=== PATIENT | female | born 1970 | race Caucasian/White ===

== ENCOUNTER 2021-02-27 14:07 | Day surgery (SDC) | payer BC, OTHER ==
[2021-02-27] MEDS ORDERED: LIDOCAINE HCL 2% 100 MG/5 ML IJ ONE (14:08)
[2021-02-27] MEDS ORDERED: DIPRIVAN 200 MG/20 ML IV ONE (14:39)
[2021-02-27] MEDS ORDERED: Lactated Ringers 1,000 ML IV ONE (15:48)
--- NOTE | 2021-02-27 16:39 | XRAY ---
Indication: Bilateral L4-S1 MBB. Intraoperative fluoroscopy provided for 11 seconds. Single digital spot image submitted for interpretation demonstrates posterior needle tips projecting over the expected left and right L4-S1 nerve roots. Correlate with intraoperative findings/report.
--- NOTE | 2021-02-27 16:43 | XRAY ---
11 seconds of fluoroscopy was used in surgery for a bilateral L4-S1 MBB.
== END 2021-02-27 15:20 | disposition home or self-care (01) ==
LOC: SDC-PAIN 14:07
PROVIDERS: ATTEND Psychiatry & Neurology Pain Medicine
DX: M47.816 Spondylosis without myelopathy or radiculopathy, lumbar region (principal); Z79.899 Other long term (current) drug therapy
CPT/HCPCS: 64493; 64494; 72020; 77002; 84703; J2704

== ENCOUNTER 2021-03-20 14:43 | Day surgery (SDC) | payer OTHER ==
[2021-03-20] MEDS ORDERED: BUPIVACAINE 0.5% VIAL IJ ONE (14:44)
[2021-03-20] MEDS ORDERED: Depo-Medrol 40 MG/ML IM ONE (14:44)
[2021-03-20] MEDS ORDERED: Lactated Ringers 1,000 ML IV ONE (15:24)
[2021-03-20] MEDS ORDERED: DIPRIVAN 200 MG/20 ML IV ONE (15:53)
--- NOTE | 2021-03-20 20:40 | XRAY ---
Indication: Bilateral L4-S1 MBB. Intraoperative fluoroscopy provided for 10 seconds. Single digital spot image submitted for interpretation demonstrates posterior needle tips projecting over the expected left and right L4-S1 nerve roots. Correlate with intraoperative findings/report.
--- NOTE | 2021-03-21 08:52 | XRAY ---
10 seconds fluoroscopy time in surgery for bilateral L4-S1 MBB.
== END 2021-03-20 16:20 | disposition home or self-care (01) ==
LOC: SDC-PAIN 14:43
PROVIDERS: ATTEND Psychiatry & Neurology Pain Medicine
DX: M47.816 Spondylosis without myelopathy or radiculopathy, lumbar region (principal); Z79.899 Other long term (current) drug therapy
CPT/HCPCS: 64493; 64494; 72020; 77002; 84703; J1030; J2704

== ENCOUNTER 2021-04-24 12:43 | Day surgery (SDC) | payer OTHER ==
[2021-04-24] MEDS ORDERED: Depo-Medrol 40 MG/ML IM ONE (12:44)
[2021-04-24] MEDS ORDERED: Xylocaine 1% Vial 30 ML PF IJ ONE (12:44)
[2021-04-24] MEDS ORDERED: BUPIVACAINE 0.5% VIAL IJ ONE (12:44)
[2021-04-24] MEDS ORDERED: DIPRIVAN 200 MG/20 ML IV ONE (15:10)
[2021-04-24] MEDS ORDERED: Lactated Ringers 1,000 ML IV ONE (15:47)
--- NOTE | 2021-04-24 16:54 | XRAY ---
19 seconds fluoroscopy time in surgery for left L4-S1 RFA.
--- NOTE | 2021-04-24 21:52 | XRAY ---
Indication: Left L4-S1 RFA. Intraoperative fluoroscopy provided for 19 seconds. 3 digital spot image submitted for interpretation demonstrates posterior needle tips projecting over the expected left L4-S1 nerve roots. Correlate with intraoperative findings/report.
== END 2021-04-24 15:36 | disposition home or self-care (01) ==
LOC: SDC-PAIN 12:43
PROVIDERS: ATTEND Psychiatry & Neurology Pain Medicine
DX: M47.816 Spondylosis without myelopathy or radiculopathy, lumbar region (principal); I10 Essential (primary) hypertension; J44.9 Chronic obstructive pulmonary disease, unspecified; F41.9 Anxiety disorder, unspecified; F32.9 Major depressive disorder, single episode, unspecified; Z79.899 Other long term (current) drug therapy
CPT/HCPCS: 64635; 64636; 72100; 77002; 84703; J1030; J2001; J2704

== ENCOUNTER 2021-04-26 10:47 | Day surgery (SDC) | payer OTHER ==
[2021-04-26] MEDS ORDERED: Depo-Medrol 40 MG/ML IM ONE (10:48)
[2021-04-26] MEDS ORDERED: BUPIVACAINE 0.5% VIAL IJ ONE (10:48)
[2021-04-26] MEDS ORDERED: DIPRIVAN 200 MG/20 ML IV ONE (12:01)
[2021-04-26] MEDS ORDERED: Lactated Ringers 1,000 ML IV ONE (12:11)
--- NOTE | 2021-04-26 13:14 | XRAY ---
Indication: Right greater trochanter bursa injection. Intraoperative fluoroscopy provided for 12 seconds. Single digital spot image submitted for interpretation demonstrates needle tip lateral to the right greater trochanter. Small amount contrast injected for needle tip placement. Correlate with intraoperative findings/report.
--- NOTE | 2021-04-26 13:16 | XRAY ---
Indication: Right knee injection. Intraoperative fluoroscopy provided for 5 seconds. Single digital spot image submitted for interpretation demonstrates needle tip projecting over the right femur intercondylar notch. Small amount contrast injected for needle tip placement. Correlate with intraoperative findings/report.
--- NOTE | 2021-04-26 13:16 | XRAY ---
5 seconds fluoroscopy time in surgery for intra-articular injection of the right knee.
--- NOTE | 2021-04-26 13:26 | XRAY ---
12 seconds fluoroscopy time in surgery for injection of the greater trochanter of the right hip.
== END 2021-04-26 12:30 | disposition home or self-care (01) ==
LOC: SDC-PAIN 10:47
PROVIDERS: ATTEND Psychiatry & Neurology Pain Medicine
DX: M17.11 Unilateral primary osteoarthritis, right knee (principal); M70.61 Trochanteric bursitis, right hip; Z79.899 Other long term (current) drug therapy
CPT/HCPCS: 20610; 73501; 73560; 77002; 84703; J1030; J2704; Q9966

== ENCOUNTER 2021-05-01 13:05 | Day surgery (SDC) | payer OTHER ==
[2021-05-01] MEDS ORDERED: Depo-Medrol 40 MG/ML IM ONE (13:06)
[2021-05-01] MEDS ORDERED: Xylocaine 1% Vial 30 ML PF IJ ONE (13:06)
[2021-05-01] MEDS ORDERED: BUPIVACAINE 0.5% VIAL IJ ONE (13:06)
[2021-05-01] MEDS ORDERED: DIPRIVAN 200 MG/20 ML IV ONE (14:53)
--- NOTE | 2021-05-01 16:26 | XRAY ---
Indication: Right L4-S1 RFA. Intraoperative fluoroscopy provided for 22 seconds. 3 digital spot images submitted for interpretation demonstrates posterior needle tips projecting over the expected right L4-S1 nerve roots. Correlate with intraoperative findings/report.
[2021-05-01] MEDS ORDERED: Lactated Ringers 1,000 ML IV ONE (16:28)
--- NOTE | 2021-05-01 16:29 | XRAY ---
22 seconds fluoroscopy time in surgery for right L4-S1 RFA.
== END 2021-05-01 15:24 | disposition home or self-care (01) ==
LOC: SDC-PAIN 13:05
PROVIDERS: ATTEND Psychiatry & Neurology Pain Medicine
DX: M47.816 Spondylosis without myelopathy or radiculopathy, lumbar region (principal); Z79.891 Long term (current) use of opiate analgesic; Z72.0 Tobacco use
CPT/HCPCS: 64635; 64636; 72100; 77002; 84703; J1030; J2001; J2704

== ENCOUNTER 2021-08-28 11:38 | Day surgery (SDC) | payer OTHER ==
[2021-08-28] MEDS ORDERED: SYNVISC 16 MG/2 ML SYRINGE IU ONE (11:39)
[2021-08-28] MEDS ORDERED: Lactated Ringers 1,000 ML IV ONE (14:18)
[2021-08-28] MEDS ORDERED: DIPRIVAN 200 MG/20 ML IV ONE (14:22)
--- NOTE | 2021-08-28 15:21 | XRAY ---
Indication: Right knee injection. Intraoperative fluoroscopy provided for 8 seconds. Single digital spot image submitted for interpretation demonstrates needle tip projecting over the right femur intercondylar notch. Small amount of contrast injected for needle tip placement. Correlate with intraoperative findings/report.
--- NOTE | 2021-08-28 15:29 | XRAY ---
8 seconds fluoroscopy time in surgery for injection of the intra-articular space of the right knee.
== END 2021-08-28 14:30 | disposition home or self-care (01) ==
LOC: SDC-PAIN 11:38
PROVIDERS: ATTEND Psychiatry & Neurology Pain Medicine
DX: M17.11 Unilateral primary osteoarthritis, right knee (principal); Z79.899 Other long term (current) drug therapy
CPT/HCPCS: 20610; 73560; 77002; 84703; J2704; J7325; Q9966

== ENCOUNTER 2021-09-04 11:39 | Day surgery (SDC) | payer OTHER ==
[2021-09-04] MEDS ORDERED: SYNVISC 16 MG/2 ML SYRINGE IU ONE (11:40)
[2021-09-04] MEDS ORDERED: DIPRIVAN 200 MG/20 ML IV ONE (13:32)
[2021-09-04] MEDS ORDERED: Lactated Ringers 1,000 ML IV ONE (14:24)
--- NOTE | 2021-09-04 15:00 | XRAY ---
Indication: Right knee injection. Intraoperative fluoroscopy provided for 10 seconds. Single digital spot image submitted for interpretation demonstrates needle tip projecting over the right femur intercondylar notch. Small amount of contrast injected for needle tip placement. Correlate with intraoperative findings/report.
--- NOTE | 2021-09-04 16:26 | XRAY ---
10 seconds of fluoroscopy was used in surgery for a right intra-articular knee injection.
== END 2021-09-04 14:00 | disposition home or self-care (01) ==
LOC: SDC-PAIN 11:39
PROVIDERS: ATTEND Psychiatry & Neurology Pain Medicine
DX: M17.11 Unilateral primary osteoarthritis, right knee (principal); I10 Essential (primary) hypertension; Z79.899 Other long term (current) drug therapy
CPT/HCPCS: 20610; 73560; 77002; 84703; J2704; J7325; Q9966

== ENCOUNTER 2021-09-11 11:40 | Day surgery (SDC) | payer OTHER ==
[2021-09-11] MEDS ORDERED: SYNVISC 16 MG/2 ML SYRINGE IU ONE (11:41)
[2021-09-11] MEDS ORDERED: DIPRIVAN 200 MG/20 ML IV ONE (13:57)
[2021-09-11] MEDS ORDERED: Lactated Ringers 1,000 ML IV ONE (15:25)
--- NOTE | 2021-09-11 16:49 | XRAY ---
Indication: Right knee injection. Intraoperative fluoroscopy provided for 12 seconds. Single digital spot image submitted for interpretation demonstrates needle tip projecting over the right femur intercondylar notch. Small amount of contrast injected for needle tip placement. Correlate with intraoperative findings/report.
--- NOTE | 2021-09-11 16:58 | XRAY ---
12 seconds fluoroscopy time in surgery for intra-articular injection of the righ tknee.
== END 2021-09-11 14:30 | disposition home or self-care (01) ==
LOC: SDC-PAIN 11:40
PROVIDERS: ATTEND Psychiatry & Neurology Pain Medicine
DX: M17.11 Unilateral primary osteoarthritis, right knee (principal); I10 Essential (primary) hypertension; Z79.899 Other long term (current) drug therapy
CPT/HCPCS: 20610; 73560; 77002; 84703; J2704; J7325; Q9966

== ENCOUNTER → 2021-10-16 | Day surgery (SDC) | payer OTHER ==
[~2021-10-16] MED LIST: BUPIVACAINE 0.5% VIAL IJ ONE; Depo-Medrol 40 MG/ML IM ONE; Xylocaine 1% Vial 30 ML PF IJ ONE
--- NOTE | 2021-10-16 18:29 | XRAY ---
Indication: Right hip injection. Intraoperative fluoroscopy provided for 13 seconds. Single digital spot image submitted for interpretation demonstrates needle tip projecting lateral to the right femur neck. Small amount of contrast injected for needle tip placement. Correlate with intraoperative findings/report.
--- NOTE | 2021-10-17 09:19 | XRAY ---
13 seconds fluoroscopy time in surgery for intra-articular injection of the right hip.
== END ==
LOC: SDC-PAIN 14:13
PROVIDERS: ATTEND Psychiatry & Neurology Pain Medicine
DX: M16.11 Unilateral primary osteoarthritis, right hip (principal); Z79.899 Other long term (current) drug therapy
CPT/HCPCS: 20610; 73501; 77002; 84703; J1030; J2001; Q9966

== ENCOUNTER 2022-02-12 15:49 | Day surgery (SDC) | payer OTHER ==
[2022-02-12] MEDS ORDERED: XYLOCAINE-MPF 1% 5ML SDV IJ ONE (15:50)
[2022-02-12] MEDS ORDERED: Depo-Medrol 40 MG/ML IM ONE (15:50)
[2022-02-12] MEDS ORDERED: BUPIVACAINE 0.5% VIAL IJ ONE (15:50)
--- NOTE | 2022-02-12 18:06 | XRAY ---
Indication: Right SI joint injection. Intraoperative fluoroscopy provided for 10 seconds. 2 digital spot image submitted for interpretation demonstrates posterior needle tip projecting over the right SI joint. Correlate with intraoperative findings/report. Incidental partial visualized lumbosacral fusion hardware.
--- NOTE | 2022-02-13 11:59 | XRAY ---
10 seconds of fluoroscopy was used in surgery for a right SI joint injection.
== END 2022-02-12 17:30 | disposition home or self-care (01) ==
LOC: SDC-PAIN 15:49
PROVIDERS: ATTEND Psychiatry & Neurology Pain Medicine
DX: M46.1 Sacroiliitis, not elsewhere classified (principal); Z79.899 Other long term (current) drug therapy
CPT/HCPCS: 27096; 72170; 77002; 81025; G0260; J1030

== ENCOUNTER 2022-06-25 16:08 | Day surgery (SDC) | payer MEDICARE, OTHER ==
[2022-06-25] MEDS ORDERED: SYNVISC 16 MG/2 ML SYRINGE IU ONE (16:09)
[2022-06-25] MEDS ORDERED: LIDOCAINE HCL 1% 50 MG/5 ML VL PF IJ ONE (16:09)
--- NOTE | 2022-06-25 19:27 | XRAY ---
Indication: Right knee injection. Intraoperative fluoroscopy provided for 9 seconds. Single digital spot image submitted for interpretation demonstrates needle tip projecting over the right femur intercondylar notch. Small amount of contrast injected for needle tip placement. Correlate with intraoperative findings/report.
--- NOTE | 2022-06-26 08:33 | XRAY ---
9 seconds of fluoroscopy was used in surgery for a right intra-articular knee injection.
== END 2022-06-25 18:50 | disposition home or self-care (01) ==
LOC: SDC-PAIN 16:08
PROVIDERS: ATTEND Psychiatry & Neurology Pain Medicine
DX: M19.011 Primary osteoarthritis, right shoulder (principal); M75.51 Bursitis of right shoulder; Z79.899 Other long term (current) drug therapy
CPT/HCPCS: 20610; 73560; 77002; 81025; J2001; J7325; Q9966

== ENCOUNTER 2022-07-02 16:04 | Day surgery (SDC) | payer MEDICARE, OTHER ==
[2022-07-02] MEDS ORDERED: SYNVISC 16 MG/2 ML SYRINGE IU ONE (16:05)
[2022-07-02] MEDS ORDERED: LIDOCAINE HCL 1% 50 MG/5 ML VL PF IJ ONE (16:05)
[2022-07-02] MEDS ORDERED: Depo-Medrol 40 MG/ML IM ONE (16:05)
[2022-07-02] MEDS ORDERED: BUPIVACAINE 0.5% VIAL IJ ONE (16:05)
[2022-07-02 16:20] LABS: HCG,QUALITATIVE URINE NEGATIVE (Negative)
--- NOTE | 2022-07-03 09:19 | XRAY ---
12 seconds of fluoroscopy was used in surgery for a right intra-articular knee injection.
== END 2022-07-02 18:15 | disposition home or self-care (01) ==
LOC: SDC-PAIN 16:04
PROVIDERS: ATTEND Psychiatry & Neurology Pain Medicine
DX: M17.11 Unilateral primary osteoarthritis, right knee (principal); Z79.899 Other long term (current) drug therapy
CPT/HCPCS: 20610; 73560; 77002; 81025; J1030; J2001; J7325; Q9966

== ENCOUNTER 2022-07-09 13:07 | Day surgery (SDC) | payer MEDICARE, OTHER ==
[2022-07-09] MEDS ORDERED: LIDOCAINE HCL 1% 50 MG/5 ML VL PF IJ ONE (13:08)
[2022-07-09] MEDS ORDERED: SYNVISC 16 MG/2 ML SYRINGE IU ONE (13:08)
--- NOTE | 2022-07-09 16:35 | XRAY ---
9 seconds of fluoroscopy was used in surgery for a right intra-articular knee injection.
== END 2022-07-09 14:38 | disposition home or self-care (01) ==
LOC: SDC-PAIN 13:07
PROVIDERS: ATTEND Psychiatry & Neurology Pain Medicine
DX: M17.11 Unilateral primary osteoarthritis, right knee (principal); Z79.899 Other long term (current) drug therapy
CPT/HCPCS: 20610; 73560; 77002; 81025; J2001; J7325; Q9966